=== PATIENT | female | born 1945 | race Caucasian/White ===

== ENCOUNTER 2017-02-15 18:42 | Inpatient (IN) | payer BC ==
[2017-02-15] MEDS ORDERED: HYDROmorphone INJ* 1 MG/ML CARPUJECT SYRINGE IV ONE (19:11)
[2017-02-15] MEDS ORDERED: Ondansetron INJ* 2 MG/ML VIAL IV ONE (19:11)
[2017-02-15] MEDS: NS 0.9% 1000 ML* 1,000 ML IV ONE (19:20)
[2017-02-15 20:12] LABS: Hematocrit 37 % (35-47); Hemoglobin 12.4 g/dl (12.0-16.0); Mean Corpuscular HGB Conc 34 g/dl (31-36); Mean Corpuscular Hemoglobin 29 pg (27-31); Mean Corpuscular Volume 88 fL (80-97); Mean Platelet Volume 9 um3 (7.4-10.4); Red Blood Count 4.22 10^6/ul (4.0-5.4); Red Cell Distribution Width 13 % (10.5-15); White Blood Count 2.5 10^3/ul (3.5-10.8)
[2017-02-15 20:13] LABS: Add Diff/Slide Review? Slide Review Added; Comments Flag Yes
[2017-02-15 20:29] LABS: Albumin 3.8 g/dL (3.2-5.2); BUN/Creatinine Ratio 26.6 (8-20); C Reactive Protein 1.51 mg/L (< 5.00); Calcium 9.2 mg/dL (8.6-10.3); EGFR African American 75.9 (>60); Globulin 2.5 g/dL (2-4); Potassium 3.4 mmol/L (3.5-5.0); Total Bilirubin 0.6 mg/dL (0.2-1.0); Total Protein 6.3 g/dL (6.4-8.9)
[2017-02-15] MEDS ORDERED: NS 0.9% 1000 ML* 1,000 ML IV ONE (20:36)
[2017-02-15 21:16] LABS: Eosinophils % 1 % (0-6); Immature Granulocytes 13 % (0-9); Metamyelocytes % 1 % (0-2); Neutrophil % 76 % (38-83); Reactive Lymph % 1 % (0-6)
[2017-02-15 21:17] LABS: RBC Morphology Normal (Normal)
[2017-02-15] MEDS ORDERED: Iodixanol* (CONTRAST) 320 MG/ML 100 ML SDV IV ONE ×2 (21:40→23:00)
--- NOTE | 2017-02-15 22:17 | ED ---
Meliton Hightower Julia, scribed for Kapil Velasco MD on 02/15/17 at 2000 . Abdominal Pain/Female - HPI Summary HPI Summary: This patient is a 71 year old F BIBA to [facility] with a chief complaint of abdominal pain since 15:00 today. The patient rates the pain 3/10 in severity. Symptoms aggravated and alleviated by nothing. Patient reports N/V. - History of Current Complaint Chief Complaint: EDAbdPain Stated Complaint: ABD PAIN Time Seen by Provider: 02/15/17 19:03 Hx Obtained From: Patient Onset/Duration: Gradual Onset, Lasting Hours, Still Present Timing: Constant Severity Currently: Mild Pain Intensity: 3 Pain Scale Used: 0-10 Numeric Aggravating Factor(s): Nothing Alleviating Factor(s): Nothing Associated Signs and Symptoms: Positive: Nausea, Vomiting Allergies/Adverse Reactions: Allergies Allergy/AdvReac Type Severity Reaction Status Date / Time Propoxyphene [From Darvon] Allergy Unknown Verified 02/15/17 18:48 Reaction Details PMH/Surg Hx/FS Hx/Imm Hx Endocrine/Hematology History: Reports: Hx Diabetes Cardiovascular History: Reports: Hx Hypertension Denies: Hx Pacemaker/ICD Respiratory History: Reports: Hx Asthma History: Denies: Hx Renal Disease Sensory History: Denies: Hx Hearing Aid Psychiatric History: Denies: Hx Panic Disorder - Cancer History Hx Chemotherapy: No Hx Radiation Therapy: No - Surgical History Surgery Procedure, Year, and Place: BREAST BIOPSY 35 YRS AGO, D&C AGE 23 Infectious Disease History: No Infectious Disease History: Denies: Traveled Outside the [place] in Last 30 Days - Family History Known Family History: Positive: Unknown - unable to obtain, expressive aphasia - Social History Alcohol Use: None Hx Substance Use: No Substance Use Type: Reports: None Hx Tobacco Use: No Smoking Status (MU): Never Smoked Tobacco Have You Smoked in the Last Year: No Review of Systems Negative: Fever Positive: Abdominal Pain, Vomiting, Nausea All Other Systems Reviewed And Are Negative: Yes Physical Exam - Summary Physical Exam Summary: .Appearance: The patient is well-nourished in no acute distress and in no acute pain. Skin: The skin is warm and dry and skin color reflects adequate perfusion. HEENT: The head is normocephalic and atraumatic. The pupils are equal and reactive. The conjunctivae are clear and without drainage. Nares are patent and without drainage. Mouth reveals moist mucous membranes and the throat is without erythema and exudate. The external ears are intact. The ear canals are patent and without drainage. The tympanic membranes are intact. Neck: the neck is supple with full range of motion and non-tender. There are no carotid bruits. There is no neck vein distension. Respiratory: Chest is non-tender. Lungs are clear to auscultation and breath sounds are symmetrical and equal. Cardiovascular: Heart is regular rate and rhythm. There is no murmur or rub auscultated. There is no peripheral edema and pulses are symmetrical and equal. Abdomen: The abdomen is soft and tender at the periumbilical region. There are normal bowel sounds heard in all four quadrants and there is no organomegaly palpated. Musculoskeletal: There is no back tenderness noted. Extremities are non-tender with full range of motion. There is good capillary refill. There is no peripheral edema or calf tenderness elicited. Neurological: Patient is alert and oriented to person, place and time. The patient has symmetrical motor strength in all four extremities. Cranial nerves are grossly intact. Deep tendon reflexes are symmetrical and equal in all four extremities. Psychiatric: The patient has an appropriate affect and does not exhibit any anxiety or depression. Triage Information Reviewed: Yes Vital Signs On Initial Exam: Initial Vitals Temp Pulse Resp BP Pulse Ox 100.2 F 86 16 105/32 99 02/15/17 18:46 02/15/17 18:46 02/15/17 18:46 02/15/17 18:46 02/15/17 18:46 Vital Signs Reviewed: Yes Abdomen Description: Positive: Other: - Tender at periumbilical - Stanley Coma Scale Coma Scale Total: 15 Diagnostics - Vital Signs Vital Signs Temp Pulse Resp BP Pulse Ox 02/15/17 18:56 86 134/102 95 02/15/17 18:46 100.2 F 86 16 105/32 99 - Laboratory Lab Results: Lab Results 02/15/17 02/15/17 02/15/17 Range/Units 17:45 17:45 17:45 WBC 2.5 L (3.5-10.8) 10^3/ul RBC 4.22 (4.0-5.4) 10^6/ul Hgb 12.4 (12.0-16.0) g/dl Hct 37 (35-47) % MCV 88 (80-97) fL MCH 29 (27-31) pg MCHC 34 (31-36) g/dl RDW 13 (10.5-15) % Plt Count 180 (150-450) 10^3/ul MPV 9 (7.4-10.4) um3 Neut % (Auto) 93.1 H (38-83) % Lymph % (Auto) 6.0 L (25-47) % Smyth % (Auto) 0.4 L (1-9) % Eos % (Auto) 0.2 (0-6) % Baso % (Auto) 0.3 (0-2) % Absolute Neuts (auto) 2.3 (1.5-7.7) 10^3/ul Absolute Lymphs (auto) 0.1 L (1.0-4.8) 10^3/ul Absolute Monos (auto) 0 (0-0.8) 10^3/ul Absolute Eos (auto) 0 (0-0.6) 10^3/ul Absolute Basos (auto) 0 (0-0.2) 10^3/ul Absolute Nucleated RBC 0 10^3/ul Immature Gran % 13 H (0-9) % Neutrophils % 76 (38-83) % Band Neutrophils % 12 H (0-8) % Lymphocytes % 9 L (25-47) % Reactive Lymphs % 1 (0-6) % Eosinophils % 1 (0-6) % Metamyelocytes % 1 (0-2) % Nucleated RBC % 0 Normal RBC Morphology Normal (Normal) Sodium 137 (133-145) mmol/L Potassium 3.4 L (3.5-5.0) mmol/L Chloride 103 (101-111) mmol/L Carbon Dioxide 25 (22-32) mmol/L Anion Gap 9 (2-11) mmol/L BUN 25 H (6-24) mg/dL Creatinine 0.94 (0.51-0.95) mg/dL Est GFR ( Amer) 75.9 (>60) Est GFR (Non-Af Amer) 59.0 (>60) BUN/Creatinine Ratio 26.6 H (8-20) Glucose 152 H (70-100) mg/dL Lactic Acid 3.5 H* (0.5-2.0) mmol/L Calcium 9.2 (8.6-10.3) mg/dL Total Bilirubin 0.60 (0.2-1.0) mg/dL AST 15 (13-39) U/L ALT 11 (7-52) U/L Alkaline Phosphatase 63 (34-104) U/L C-Reactive Protein 1.51 (< 5.00) mg/L Total Protein 6.3 L (6.4-8.9) g/dL Albumin 3.8 (3.2-5.2) g/dL Globulin 2.5 (2-4) g/dL Albumin/Globulin Ratio 1.5 (1-3) Lipase 25 (11.0-82.0) U/L Result Diagrams: 02/15/17 17:45 02/15/17 17:45 Lab Statement: Any lab studies that have been ordered have been reviewed, and results considered in the medical decision making process. Abdominal Pain Fem Course/Dx - Course Course Of Treatment: Ms. Borja presented with abdominal pain that started today accompanied by N/V. She was tender periumbilically and has been treated symptomatically and with fluids. She is awaiting CT. She has a history of diverticulitis. - Diagnoses Provider Diagnoses: Abdominal pain Discharge - Discharge Plan Condition: Stable Disposition: OTHER Discharge Disposition Comment: Signed out to Dr. Bond at change of shift. Referrals: Deborah De Leon MD [Primary Care Provider] - The documentation as recorded by the Meliton guerin Julia accurately reflects the service I personally performed and the decisions made by , Kapil Velasco MD.
[2017-02-16] MEDS ORDERED: metroNIDAZOLE IV 500 MG/100ML* 500 MG/100 ML BAG IVPB ONE (00:21)
[2017-02-16] MEDS ORDERED: Ciprofloxacin 400MG IVPREMIX(* 400 MG/200 ML BAG IVPB ONE (00:30)
[2017-02-16 01:16] LABS: Urine Bacteria Absent (Absent); Urine Bilirubin Negative (Negative); Urine Glucose 3+(>=500 mg/dL) (Negative); Urine Nitrite Negative (Negative)
[2017-02-16] MEDS ORDERED: Acetaminophen SUPP* 650 MG SUPP PR PRN (02:00)
[2017-02-16] MEDS ORDERED: Morphine INJ* 2 MG/ML 1 ML SYRINGE (TWO MG - NEW SYRINGE VERSION) IV PRN (02:00)
[2017-02-16] MEDS ORDERED: Ondansetron INJ* 2 MG/ML VIAL IV PRN (02:01)
[2017-02-16] MEDS ORDERED: NS 0.9% 1000 ML* 1,000 ML IV SCH (02:15)
[2017-02-16] MEDS: NS 0.9% 1000 ML* 1,000 ML IV ONE (04:05)
--- NOTE | 2017-02-16 04:32 | PN ---
Katja, Liliana Sharif, scribed for Brenda Bond MD on 02/15/17 at 2344 . Progress Note - Progress Note Date of Service: 02/15/17 Note: SIGN-OUT FROM DR. MARROQUIN UPON SHIFT CHANGE PENDING CT ABDOMEN AND PELVIS DIAGNOSTICS: CT abdomen and pelvis reveals, per radiologist, obstructive uropathy. Nonspecific sigmoid colitis. Dr. Bond has reviewed this radiology report. MDM: Consult with Dr. Delatorre (urology) at 0126. He suggests pt be admitted for further evaluation. Consult with Dr. Conklin (hospitalist) at 0131. He agrees to admit pt. This pt presented to [facility] with a chief complaint of abd pain that began earlier today. Family reports pt has been vomiting. Pt has a history of diverticulitis (at least 4 previously). Pt has a hx of stroke and diabetes. CT abdomen and pelvis reveals, per radiologist, obstructive uropathy. Nonspecific sigmoid colitis. Elevated lactic acid of 3.5. Consult with Dr. Delatorre (urologist ) at 0126. He agrees to admit pt. Pt is agreeable with plan. The documentation as recorded by the Chante guerin Emily accurately reflects the service I personally performed and the decisions made by me, Brenda Bond MD.
[2017-02-16] MEDS ORDERED: Lidocaine 1% INJ* 10 MG/ML 30 ML SDV ONE (04:58)
[2017-02-16] MEDS ORDERED: Norepinephrine 16MCG/ML IVPRE* 4,000 MCG/250 ML BAG IV ONE (05:16)
--- NOTE | 2017-02-16 05:46 | HP ---
H&P (Free Text) History and Physical: PCP: Henna De Leon MD Date/Time: 02/16/2017 0145 CC: RLQ pain HPI: Mrs Borja is a 71YO female currently unable to give a history 2nd septic encephalopathy & narcotics given in ED. She will respond incoherently to questions. This H&P is therefore obtained via ED staff & the available medical record. Mrs Borja presented via EMS for RLQ pain, bright red blood per rectum , & near syncope. Onset is documented to be ~1500, rated at 3/10, & without exacerbating or alleviating factors. There has been N/V although I see no quantification. PMedHx DM2 HTN HLD, pure hypercholesterolemia CVA diverticulitis Ambulatory Orders Nursing to reconcile. Dulaglutide (NF) [Trulicity (NF)] 0.5 ml SUBCUT WEEKLY 12/31/15 Empagliflozin [Jardiance] 10 mg PO DAILY 12/31/15 Hydrochlorothiazide [Hydrochlorothiazide-] 12.5 mg PO DAILY 12/31/15 Insulin Detemir [Levemir Flexpen] 14 units SUBCUT DAILY 12/31/15 Irbesartan 75 mg PO DAILY 12/31/15 Metformin HCl [Glucophage Xr] 750 mg PO BID 12/31/15 Metoprolol Succinate [Toprol Xl] 50 mg PO DAILY 12/31/15 glipiZIDE TAB.XL* [Glucotrol Xl*] 2.5 mg PO DAILY 12/31/15 Atorvastatin* [Lipitor 40 MG*] 40 mg PO 1700 #30 tab 01/28/16 Clopidogrel TAB* [Plavix TAB*] 75 mg PO DAILY #30 tab 01/28/16 Allergies Propoxyphene [From Darvon] Allergy (Verified 02/15/17 18:48) Unknown Reaction Details PSurgHx unobtainable SocHx: no HX tobacco, alcohol, or recreational drugs; lives with her ; 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 Father: passed in his 50s 2nd CAD/ CA. ROS: as above, otherwise reviewed and all were negative vitals: Vital Signs Temp 37.9 C 02/15/17 18:46 Pulse 85 02/16/17 04:02 Resp 21 02/16/17 04:02 BP 88/42 02/16/17 04:02 Pulse Ox 94 02/16/17 04:08 Intake & Output 02/15/17 02/15/17 02/16/17 11:59 23:59 11:59 Intake Total 1999 Balance 1999 Weight 56.699 kg Intake: IV Fluids 1999 Constitutional: NAD, normally developed, well-nourished white female HEENM: atraumatic; sclera/conjunctiva: anicteric/clear; hearing: unable to accurately assess; oropharynx: clear, mucosa tacky Neck: soft tissue: no nuchal rigidity; thyroid: normal Pulmonary: clear to auscultation bilaterally, good aeration, no accessory muscle use CV: RR/RR, normal S1S2, no carotid bruit, no jugular venous distention, 2+ B DP/ PT, no edema Abdominal: soft, non-distended, non-tender, no rebound/guarding/rigidity, normoactive bowel sounds, no hepatosplenomegaly or masses, no costovertebral angle tenderness Musculoskeletal: general: grossly intact; gait: currently too ill to ambulate Integumental: normal appearance and texture of exposed skin Psychiatric orientation: AA&O to person only affect: acutely ill appearing mood: fidgety eye contact: poor content: unreliable, incoherent memory: unable to assess responses: slowed, incomprehensible insight: poor Testing: Lab Results 02/15/17 02/15/17 02/15/17 Range/Units 17:45 17:45 17:45 WBC 2.5 L (3.5-10.8) 10^3/ul RBC 4.22 (4.0-5.4) 10^6/ul Hgb 12.4 (12.0-16.0) g/dl Hct 37 (35-47) % MCV 88 (80-97) fL MCH 29 (27-31) pg MCHC 34 (31-36) g/dl RDW 13 (10.5-15) % Plt Count 180 (150-450) 10^3/ul MPV 9 (7.4-10.4) um3 Neut % (Auto) 93.1 H (38-83) % Lymph % (Auto) 6.0 L (25-47) % Perry % (Auto) 0.4 L (1-9) % Eos % (Auto) 0.2 (0-6) % Baso % (Auto) 0.3 (0-2) % Absolute Neuts (auto) 2.3 (1.5-7.7) 10^3/ul Absolute Lymphs (auto) 0.1 L (1.0-4.8) 10^3/ul Absolute Monos (auto) 0 (0-0.8) 10^3/ul Absolute Eos (auto) 0 (0-0.6) 10^3/ul Absolute Basos (auto) 0 (0-0.2) 10^3/ul Absolute Nucleated RBC 0 10^3/ul Immature Gran % 13 H (0-9) % Neutrophils % 76 (38-83) % Band Neutrophils % 12 H (0-8) % Lymphocytes % 9 L (25-47) % Reactive Lymphs % 1 (0-6) % Eosinophils % 1 (0-6) % Metamyelocytes % 1 (0-2) % Nucleated RBC % 0 Normal RBC Morphology Normal (Normal) Sodium 137 (133-145) mmol/L Potassium 3.4 L (3.5-5.0) mmol/L Chloride 103 (101-111) mmol/L Carbon Dioxide 25 (22-32) mmol/L Anion Gap 9 (2-11) mmol/L BUN 25 H (6-24) mg/dL Creatinine 0.94 (0.51-0.95) mg/dL Est GFR ( Amer) 75.9 (>60) Est GFR (Non-Af Amer) 59.0 (>60) BUN/Creatinine Ratio 26.6 H (8-20) Glucose 152 H (70-100) mg/dL Lactic Acid 3.5 H* (0.5-2.0) mmol/L Calcium 9.2 (8.6-10.3) mg/dL Total Bilirubin 0.60 (0.2-1.0) mg/dL AST 15 (13-39) U/L ALT 11 (7-52) U/L Alkaline Phosphatase 63 (34-104) U/L C-Reactive Protein 1.51 (< 5.00) mg/L Total Protein 6.3 L (6.4-8.9) g/dL Albumin 3.8 (3.2-5.2) g/dL Globulin 2.5 (2-4) g/dL Albumin/Globulin Ratio 1.5 (1-3) Lipase 25 (11.0-82.0) U/L Urine Color Urine Appearance Urine pH (5-9) Ur Specific Ashley (1.010-1.030) Urine Protein (Negative) Urine Ketones (Negative) Urine Blood (Negative) Urine Nitrate (Negative) Urine Bilirubin (Negative) Urine Urobilinogen (Negative) Ur Leukocyte Esterase (Negative) Urine WBC (Auto) (Absent) Urine RBC (Auto) (Absent) Urine Bacteria (Absent) Urine Glucose (Negative) 02/16/17 02/16/17 Range/Units 01:00 01:00 WBC (3.5-10.8) 10^3/ul RBC (4.0-5.4) 10^6/ul Hgb (12.0-16.0) g/dl Hct (35-47) % MCV (80-97) fL MCH (27-31) pg MCHC (31-36) g/dl RDW (10.5-15) % Plt Count (150-450) 10^3/ul MPV (7.4-10.4) um3 Neut % (Auto) (38-83) % Lymph % (Auto) (25-47) % Perry % (Auto) (1-9) % Eos % (Auto) (0-6) % Baso % (Auto) (0-2) % Absolute Neuts (auto) (1.5-7.7) 10^3/ul Absolute Lymphs (auto) (1.0-4.8) 10^3/ul Absolute Monos (auto) (0-0.8) 10^3/ul Absolute Eos (auto) (0-0.6) 10^3/ul Absolute Basos (auto) (0-0.2) 10^3/ul Absolute Nucleated RBC 10^3/ul Immature Gran % (0-9) % Neutrophils % (38-83) % Band Neutrophils % (0-8) % Lymphocytes % (25-47) % Reactive Lymphs % (0-6) % Eosinophils % (0-6) % Metamyelocytes % (0-2) % Nucleated RBC % Normal RBC Morphology (Normal) Sodium (133-145) mmol/L Potassium (3.5-5.0) mmol/L Chloride (101-111) mmol/L Carbon Dioxide (22-32) mmol/L Anion Gap (2-11) mmol/L BUN (6-24) mg/dL Creatinine (0.51-0.95) mg/dL Est GFR ( Amer) (>60) Est GFR (Non-Af Amer) (>60) BUN/Creatinine Ratio (8-20) Glucose (70-100) mg/dL Lactic Acid 1.5 (0.5-2.0) mmol/L Calcium (8.6-10.3) mg/dL Total Bilirubin (0.2-1.0) mg/dL AST (13-39) U/L ALT (7-52) U/L Alkaline Phosphatase (34-104) U/L C-Reactive Protein (< 5.00) mg/L Total Protein (6.4-8.9) g/dL Albumin (3.2-5.2) g/dL Globulin (2-4) g/dL Albumin/Globulin Ratio (1-3) Lipase (11.0-82.0) U/L Urine Color Yellow Urine Appearance Clear Urine pH 5.0 (5-9) Ur Specific Ashley 1.032 H (1.010-1.030) Urine Protein Negative (Negative) Urine Ketones Trace H (Negative) Urine Blood 1+ H (Negative) Urine Nitrate Negative (Negative) Urine Bilirubin Negative (Negative) Urine Urobilinogen Negative (Negative) Ur Leukocyte Esterase Trace H (Negative) Urine WBC (Auto) 1+(6-10/hpf) H (Absent) Urine RBC (Auto) Trace(0-2/hpf) (Absent) Urine Bacteria Absent (Absent) Urine Glucose 3+(>=500 mg/dl) H (Negative) CT abd/pel W, personally reviewed: IMPRESSION: Obstructive [left] uropathy. Non- specific sigmoid colitis. Impression: 71F HX DM2, CVA, HTN presents in septic shock (hypotension after 30mg/kg IVF resuscitation, leukopenia, AMS, HR>90) 2nd combination of non- specific signmoid colitis & obstructive uropathy DIAGNOSIS & PLAN Primary septic shock with encephalopathy : IV ABX : IVFs : blood & urine CXs : central line for pressor support : ICU monitoring : supportive care 3mm obstructing ureterolith at the UVJ : S Juan Ramon, MD urology consulted by ED, will evaluate in AM : UA not indicative of infection : urine CX non-specific sigmoid colitis : IVFs : IV ciprofloxacin & metronidazole : stool for occult blood Secondary DM2 : A1c 7.29 Nov 2016 : Q4H glucometry : basal/correctional insulin HTN : hold anti-hypertensives in setting of septic shock HLD, pure hypercholesterolemia : continue statin once able to take PO HX CVA : no obvious acute issues Admission Rational: inpatient for septic shock, obstructive uropathy, & non- specific sigmoid colitis requiring ICU management, IVFs, & IV ABX DVTp: SCDs, heparin SQ Code Status: full HCP: Critical Care Time: 65minutes with >50% spent at the bedside face to face evaluating and obtaining HX
[2017-02-16] MEDS ORDERED: Norepinephrine 16MCG/ML IVPRE* 4,000 MCG/250 ML BAG IV SCH (06:00)
[2017-02-16] MEDS: Insulin LISPRO* 1 UNITS UNIT SUBCUT SCH ×5 (06:03→22:38)
[2017-02-16 06:26] LABS: Hematocrit 32 % (35-47); Hemoglobin 10.7 g/dl (12.0-16.0); Mean Corpuscular HGB Conc 34 g/dl (31-36); Mean Corpuscular Hemoglobin 29 pg (27-31); Mean Corpuscular Volume 87 fL (80-97); Mean Platelet Volume 10 um3 (7.4-10.4); Red Blood Count 3.67 10^6/ul (4.0-5.4); Red Cell Distribution Width 13 % (10.5-15); White Blood Count 17.2 10^3/ul (3.5-10.8)
[2017-02-16 06:41] LABS: Calcium 8.1 mg/dL (8.6-10.3); EGFR African American 70.7 (>60); Potassium 3.1 mmol/L (3.5-5.0)
[2017-02-16] MEDS ORDERED: cefTRIAXone VIAL(*) 1,000 MG in NS 0.9% 50 ML* 50 ML IVPB SCH (07:00)
[2017-02-16 07:15] LABS: Add Diff/Slide Review? Slide Review Added; Comments Flag Yes
[2017-02-16] MEDS ORDERED: NS 0.9% IVPB ONE (07:30)
[2017-02-16] MEDS ORDERED: GENTAMICIN ADULT IVPB ONE (07:30)
--- NOTE | 2017-02-16 08:01 | RAD ---
INDICATION: Diffuse abdominal pain. COMPARISON: There are no prior studies available for comparison. TECHNIQUE: A CT scan of the abdomen and pelvis was performed with intravenous and oral contrast following intravenous injection of 71 ml of Visipaque 320 nonionic contrast. Contiguous axial sections were obtained from the lung bases through the symphysis pubis. Images were reconstructed in the coronal and sagittal planes. FINDINGS: There is mild dependent bilateral lower lobe subsegmental atelectasis. No pleural effusion is present. The liver and spleen are normal in size without significant focal abnormality. The gallbladder appears distended. No calcified gallstones or gallbladder wall thickening is seen. The pancreas appears to be within normal limits. The adrenal glands appear to be within normal limits. The left kidney is enlarged with perinephric fluid and stranding. There is dilatation of the left renal calyces pelvis and ureter to the level of the ureterovesical junction. At that point there is a 4 mm calculus which is causing moderate to severe hydronephrosis. There is also a 2 mm nonobstructing calculus in the lower pole of the left kidney. There are small bilateral renal cysts present. The aorta is normal in caliber with severe calcific plaque present. No significant enlarged retroperitoneal lymph nodes are seen. There is a small hiatal hernia present. The stomach, small and large bowel appear nondistended. The appendix is within normal limits. There is mild to moderate descending and sigmoid diverticulosis. There is stranding adjacent to the descending colon which is likely secondary to the adjacent perinephric stranding from the obstructed left kidney. No free intraperitoneal air or fluid is seen. The bones appear osteopenic. No fracture is seen. IMPRESSION: THERE IS A 4 MM CALCULUS AT THE LEFT URETEROVESICAL JUNCTION CAUSING MODERATE TO SEVERE HYDRONEPHROSIS. THERE IS AN ADDITIONAL SMALL NONOBSTRUCTING LEFT RENAL CALCULUS.
--- NOTE | 2017-02-16 08:06 | PN ---
Progress Note - Progress Note Date of Service: 02/16/17 Note: Nursing called reporting 3/4 blood CXs already positive for G- bacteria. Prateek Delatorre MD urology apprised, advised consulting Addie Dunn MD interventional radiology for nephrostomy who agreed & will shortly be en route. Add 1g ceftriaxone IV & 2mg/kg gentimicin x1 dose ( ICU weight 62kg). called & informed of new findings, consented to nephrostomy after risks/benefits explained & questions sought/answered to his satisfaction. Micha Lyles MD critical care apprised & will evaluate in AM.
[2017-02-16 08:10] LABS: Immature Granulocytes 16 % (0-9); Metamyelocytes % 5 % (0-2); Neutrophil % 76 % (38-83); Reactive Lymph % 2 % (0-6)
[2017-02-16 08:11] LABS: RBC Morphology Normal (Normal); Toxic Granulation 1+
[2017-02-16] MEDS: Pantoprazole IV* 40 MG IV SCH (08:13)
[2017-02-16] MEDS ORDERED: metroNIDAZOLE IV 500 MG/100ML* 500 MG/100 ML BAG IVPB SCH (10:00)
[2017-02-16] MEDS ORDERED: NS 0.9% 250 ML* 246 ML with Norepinephrine VIAL* 4 MG IV SCH ×2 (11:00)
--- NOTE | 2017-02-16 11:02 | CONSULT ---
Consult Consult: Consultation Note Critical Care Requesting Physician: Dr Conklin Reason for consult: septic shock Limitations in history/physical: none Date of consult: 02/16/2017 HPI: 71y F pmhx of DM, HTN, asthma, h/o CVA with right residual deficit; presents to [facility] ER for abd pain for 1 day, umbilical or right sided, associated with nausea and vomiting. She states no diarrhea. She was making urine, no dysuria but +hematuria+ yesterday. No syncope/cp/sob. No confusion. No falls. No cough/sputum. No fever/chills. In ER, she was found to have a tmax 100.5, became hypotensive. Started on sepsis protocol, IVF and IV abx. CT of the abd/ pelvis done demonstrating left sided hydronephrosis secondary to obstructive uropathy from an obstructing ureterovesical junction. Urology and IR was called for placement of percutaneous nephrostomy tube for decompression. Currently patient is in bed, denies abd pain now, no n/v. feels okay. Denies cp/ sob. Had some blurry vision last night but none at this time. No weakness/ numbness. ROS: negative except for pertinent positives mentioned above. 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; lives with Allergies: propoxyphene Home Medications: Dulaglutide (NF) [Trulicity (NF)] 0.5 ml SUBCUT WEEKLY 12/31/15 [History Confirmed 01/02/16] Empagliflozin [Jardiance] 10 mg PO DAILY 12/31/15 [History Confirmed 01/02/16] Hydrochlorothiazide [Hydrochlorothiazide-] 12.5 mg PO DAILY 12/31/15 [History Confirmed 01/02/16] Insulin Detemir [Levemir Flexpen] 14 units SUBCUT DAILY 12/31/15 [History Confirmed 01/02/16] Irbesartan 75 mg PO DAILY 12/31/15 [History Confirmed 01/02/16] Metformin HCl [Glucophage Xr] 750 mg PO BID 12/31/15 [History Confirmed 01/02/16 ] Metoprolol Succinate [Toprol Xl] 50 mg PO DAILY 12/31/15 [History Confirmed 06/13] glipiZIDE TAB.XL* [Glucotrol Xl*] 2.5 mg PO DAILY 12/31/15 [History Confirmed ] Atorvastatin* [Lipitor 40 MG*] 40 mg PO 1700 #30 tab 01/28/16 [Rx] Clopidogrel TAB* [Plavix TAB*] 75 mg PO DAILY #30 tab 01/28/16 [Rx] Tele: NSR Vitals: Vital Signs Temp 99.8 F 02/16/17 08:34 Pulse 75 02/16/17 10:30 Resp 10 02/16/17 10:30 BP 99/51 02/16/17 10:30 Pulse Ox 98 02/16/17 10:30 Intake & Output 02/15/17 02/16/17 02/16/17 18:59 06:59 18:59 Intake Total 4300 Output Total 500 Balance 3800 Weight 125 lb 125 lb 139 lb 12.369 oz Intake: IV Fluids 4300 NS (0.9%) 2000 Output: Greene 500 Other: Estimated Void Large O2/Vent: NC 2L Infusions: levophed 10, ns 100cc/hr Current Medications: Acetaminophen (Tylenol Supp*) 650 mg PA Q6H PRN PRN Reason: FEVER/PAIN Aspirin (Aspirin Ec Low Dose*) 81 mg PO DAILY [facility] Atorvastatin Calcium (Lipitor*) 40 mg PO 1700 [facility] Clopidogrel Bisulfate (Plavix Tab*) 75 mg PO DAILY [facility] Heparin Sodium (Porcine) (Heparin Vial(*)) 5,000 units SUBCUT Q8HR [facility] Ciprofloxacin 400 mg/ Dextrose 200 mls @ 200 mls/hr IVPB Q12H [facility] Metronidazole/Sodium Chloride (Flagyl 500 Mg Ivpb*) 500 mg in 100 mls @ 100 mls /hr IVPB Q8H [facility] Last Admin: 02/16/17 10:56 Dose: 100 mls/hr Sodium Chloride (Ns 0.9% 1000 Ml*) 1,000 mls @ 125 mls/hr IV PER RATE [facility] Last Admin: 02/16/17 05:53 Dose: 125 mls/hr Ceftriaxone Sodium 1,000 mg/ (Sodium Chloride) 50 mls @ 200 mls/hr IVPB Q24H [facility] Last Admin: 02/16/17 08:08 Dose: 200 mls/hr Norepinephrine Bitartrate 4 mg (/ Sodium Chloride) 250 mls @ 18.75 mls/hr IV Q12H [facility]; 5 MCG/MIN PRN Reason: Protocol Insulin Glargine (Lantus(*)) 11 units 0.2 units/kg (11 units) SUBCUT 2100 [facility] Stop: 02/17/17 20:00 Insulin Human Lispro (Humalog*) 0 units SUBCUT Q4H [facility] PRN Reason: Protocol Last Admin: 02/16/17 10:53 Dose: 1 unit Morphine Sulfate (Morphine Inj (Syringe)*) 2 mg IV Q4H PRN PRN Reason: PAIN - MILD Ondansetron HCl (Zofran Inj*) 4 mg IV Q6H PRN PRN Reason: NAUSEA Pantoprazole Sodium (Protonix Iv*) 40 mg IV DAILY [facility] Last Admin: 02/16/17 08:13 Dose: 40 mg Physical Exam: General: awake, alert, no distress, no diaphoresis Head: normocephalic, atraumatic HEENT: no pallor, no icterus, moist mucous membranes Neck: soft, supple, no jvd, no stridor CVS: normal rate, normal rhythm, no murmur Resp: bilateral air entry, no rhales, no wheeze, no rhonchi, no acc muscle use Abdomen: soft, minimal tenderness on left side with deep palpation, nondistended , bowel sounds present Ext: pulses+, warm, no edema Skin: intact, no breakdown, no dryness Neuro: awake, alert, orientedx3, previous right upper ext 3/5 and right LE 4/5 strength. Labs: Laboratory Results - last 24 hr 02/15/17 02/15/17 02/15/17 17:45 17:45 17:45 WBC 2.5 L RBC 4.22 Hgb 12.4 Hct 37 MCV 88 MCH 29 MCHC 34 RDW 13 Plt Count 180 MPV 9 Neut % (Auto) 93.1 H Lymph % (Auto) 6.0 L [place] % (Auto) 0.4 L Eos % (Auto) 0.2 Baso % (Auto) 0.3 Absolute Neuts (auto) 2.3 Absolute Lymphs (auto) 0.1 L Absolute Monos (auto) 0 Absolute Eos (auto) 0 Absolute Basos (auto) 0 Absolute Nucleated RBC 0 Immature Gran % 13 H Neutrophils % 76 Band Neutrophils % 12 H Lymphocytes % 9 L Reactive Lymphs % 1 Monocytes % Eosinophils % 1 Metamyelocytes % 1 Nucleated RBC % 0 Toxic Granulation Normal RBC Morphology Normal Sodium 137 Potassium 3.4 L Chloride 103 Carbon Dioxide 25 Anion Gap 9 BUN 25 H Creatinine 0.94 Est GFR ( Amer) 75.9 Est GFR (Non-Af Amer) 59.0 BUN/Creatinine Ratio 26.6 H Glucose 152 H POC Glucose (mg/dL) Lactic Acid 3.5 H* Calcium 9.2 Total Bilirubin 0.60 AST 15 ALT 11 Alkaline Phosphatase 63 C-Reactive Protein 1.51 Total Protein 6.3 L Albumin 3.8 Globulin 2.5 Albumin/Globulin Ratio 1.5 Lipase 25 Urine Color Urine Appearance Urine pH Ur Specific [place] Urine Protein Urine Ketones Urine Blood Urine Nitrate Urine Bilirubin Urine Urobilinogen Ur Leukocyte Esterase Urine WBC (Auto) Urine RBC (Auto) Urine Bacteria Urine Glucose 02/16/17 02/16/17 02/16/17 01:00 01:00 05:54 WBC RBC Hgb Hct MCV MCH MCHC RDW Plt Count MPV Neut % (Auto) Lymph % (Auto) [place] % (Auto) Eos % (Auto) Baso % (Auto) Absolute Neuts (auto) Absolute Lymphs (auto) Absolute Monos (auto) Absolute Eos (auto) Absolute Basos (auto) Absolute Nucleated RBC Immature Gran % Neutrophils % Band Neutrophils % Lymphocytes % Reactive Lymphs % Monocytes % Eosinophils % Metamyelocytes % Nucleated RBC % Toxic Granulation Normal RBC Morphology Sodium 138 Potassium 3.1 L Chloride 107 Carbon Dioxide 23 Anion Gap 8 BUN 24 Creatinine 1.00 H Est GFR ( Amer) 70.7 Est GFR (Non-Af Amer) 55.0 BUN/Creatinine Ratio 24.0 H Glucose 175 H POC Glucose (mg/dL) Lactic Acid 1.5 Calcium 8.1 L Total Bilirubin AST ALT Alkaline Phosphatase C-Reactive Protein Total Protein Albumin Globulin Albumin/Globulin Ratio Lipase Urine Color Yellow Urine Appearance Clear Urine pH 5.0 Ur Specific [place] 1.032 H Urine Protein Negative Urine Ketones Trace H Urine Blood 1+ H Urine Nitrate Negative Urine Bilirubin Negative Urine Urobilinogen Negative Ur Leukocyte Esterase Trace H Urine WBC (Auto) 1+(6-10/hpf) H Urine RBC (Auto) Trace(0-2/hpf) Urine Bacteria Absent Urine Glucose 3+(>=500 mg/dl) H 02/16/17 02/16/17 02/16/17 05:54 05:58 08:05 WBC 17.2 H RBC 3.67 L Hgb 10.7 L Hct 32 L MCV 87 MCH 29 MCHC 34 RDW 13 Plt Count 170 MPV 10 Neut % (Auto) 89.3 H Lymph % (Auto) 1.9 L [place] % (Auto) 8.6 Eos % (Auto) 0 Baso % (Auto) 0.2 Absolute Neuts (auto) 15.3 H Absolute Lymphs (auto) 0.3 L Absolute Monos (auto) 1.5 H Absolute Eos (auto) 0 Absolute Basos (auto) 0 Absolute Nucleated RBC 0 Immature Gran % 16 H Neutrophils % 76 Band Neutrophils % 11 H Lymphocytes % 1 L Reactive Lymphs % 2 Monocytes % 5 Eosinophils % Metamyelocytes % 5 H Nucleated RBC % 0 Toxic Granulation 1+ Normal RBC Morphology Normal Sodium Potassium Chloride Carbon Dioxide Anion Gap BUN Creatinine Est GFR ( Amer) Est GFR (Non-Af Amer) BUN/Creatinine Ratio Glucose POC Glucose (mg/dL) 191 H 180 H Lactic Acid Calcium Total Bilirubin AST ALT Alkaline Phosphatase C-Reactive Protein Total Protein Albumin Globulin Albumin/Globulin Ratio Lipase Urine Color Urine Appearance Urine pH Ur Specific [place] Urine Protein Urine Ketones Urine Blood Urine Nitrate Urine Bilirubin Urine Urobilinogen Ur Leukocyte Esterase Urine WBC (Auto) Urine RBC (Auto) Urine Bacteria Urine Glucose Imaging: Reviewed CT abd/pelvis 02/16 - left hydro, left obstructing stone at ureteropelvic junction Assessment: 71y F pmhx of DM, HTN, asthma, h/o CVA with right residual deficit; presents to [facility] ER for abd pain for 1 day, umbilical or right sided, associated with nausea and vomiting. Low grade temps, hypotensive in ER. CT abd/pelvis with left side hydro and obstructive uropathy 2/2 to stones. Admitted for septic shock. -Septic Shock -Gram negative bacteremia -Left hydronephrosis 2/2 to ureterovesical stone and obstructive uropathy -Hyperlactatemia, improved -hypokalemia Plan: Neuro- stable, baseline right sided weakness. Restart Plavix/statin/aspirin after procedure done. Delirium prec. Fall prec. CVS- septic shock, on levophed. Cont NS 100cc/hour. LA normalized now. Making urine. IV abx for gram neg coverage. Right fem central line. Maintain MAP>65. Resp- no resp distress, on NC/RA. ID- tmax 100.5, wbc 17 now. Gram neg bacilli in blood cx. Left sided hydro and obstruction, likely cause as urosepsis. For nephrostomy today. Send urine culture after. Change IV abx to zosyn, d/c Cipro/ceftriaxone/flagyl. GI- NPO for procedure today. GI proph. Renal- Cr normal. Making urine. Repleting K IV and PO. Replete Mg. Noted CT findings of obstructive uropathy on left. Perc Nephrostomy today for decompression, by IR, discussed. Urology consult. IV abx. Greene in place. Heme- hg stable, some drop after IVF recucitation. Monitor. Plt okay. Hold asa/ Plavix for now till after procedure. Endo- insulin coverage, fingersticks achs Musculsk- bedrest now, pressure ulcer proph. Wounds- none Nutrition- NPO for now DVT prophylaxis: heparin sq GI prophylaxis: protonix po Central Line: right fem 02/16 Arterial Line: - Greene Cathetor: yes Disposition: admitted to ICU for septic shock Code Status: full code Total Critical Care time is 45 minutes, excluding procedures/teaching Dar Lyles MD Delivery Architect (Electronically Signed)
--- NOTE | 2017-02-16 11:24 | RAD ---
INDICATION: Bacteremia in the presence of obstructive left nephropathy. COMPARISON: CT abdomen pelvis February 15, 2017 TECHNIQUE: Real-time ultrasound examination of the left kidney only including grayscale and Doppler color flow analysis. FINDINGS: The left kidney measures 12.9 x 5.7 x 4.6 cm. There is only mild dilatation of the collecting system. There is an inferior pole cyst measuring 2.1 cm in greatest dimension. IMPRESSION: Very mild left-sided hydronephrosis.
[2017-02-16] MEDS ORDERED: fentaNYL* 50 MCG/ML 2 ML VIAL (100 MCG VIAL) ONE ×2 (11:27→13:17)
[2017-02-16] MEDS ORDERED: Midazolam* 1 MG/ML 10 ML VIAL (10 MG) ONE (11:28)
[2017-02-16] MEDS ORDERED: Ciprofloxacin IV(*) 400 MG in D5W 250 ML BAG* 160 ML IVPB SCH (14:00)
--- NOTE | 2017-02-16 15:24 | RAD ---
CPT II Codes: 6045F PERCUTANEOUS NEPHROSTOMY TUBE PLACEMENT WITH SONOGRAPHIC AND FLUOROSCOPIC GUIDANCE. INDICATION: Left-sided obstructive uropathy with bacteremia COMPARISON: CT abdomen pelvis February 15, 2017 and left renal ultrasound February 16, 2017 FLUOROSCOPY TIME: 5 minutes and 27 seconds ANESTHESIA AND OTHER PERIOPERATIVE MEDICATIONS: 1% lidocaine locally. Sedation and pain control provided by intravenous Fentanyl. Continuous cardiopulmonary monitoring was provided by Dr. Dunn and IR nursing staff. PROCEDURE NOTE AND IMAGING FINDINGS: The benefits and risks of the procedure explained to the patient. The patient consented to the procedure. The patient was positioned on the fluoroscopy table in the left posterior oblique position. Preliminary sonographic exam demonstrates a mildly hydronephrotic left kidney. A lower pole calyx was identified for percutaneous access. Color flow analysis does not show any pulsating arteries in the intended percutaneous percutaneous nephrostomy catheter tract or in the immediate vicinity of the planned drain placement. A formal time out was preformed with the technologist and nursing staff. The intended percutaneous nephrostomy catheter site was prepped and draped in the usual sterile fashion. The patient was given intravenous sedation and local anesthesia with 1% lidocaine. Using ultrasound guidance lower pole calyx was accessed percutaneously with a 21-gauge needle. An ultrasound image was saved confirming correct positioning of the needle tip in the calyx. Under fluoroscopic control a microwire was advanced into the renal collecting system. The needle was removed and the sheath-stiffener system was inserted into the kidney over the wire under fluoroscopic control. The stiffener and microwire were removed and urine was observed draining from the access sheath. A urine sample was gently aspirated, capped in a sterile syringe and sent to the laboratory for analysis. After gently draining as much urine from the collecting system as could easily be expressed dilute contrast was injected to perform a nephrostogram which depicted very mild hydronephrosis. Under fluoroscopic control a 0.035 inch wire was advanced into the collecting system, the sheath was removed over the wire and the tract dilated up, culminating in advancement of an 8 Hungarian pigtail drainage catheter into the collecting system. The pigtail loop was correctly positioned in the collecting system, a final nephrostogram confirmed appropriate position, the loop was secured and the catheter was connected to a drainage bag. The catheter was secured to the skin and the site was dressed with sterile gauze. The patient tolerated the procedure well without incident. IMPRESSION: Uncomplicated placement of 8 Hungarian percutaneous nephrostomy catheter into the left lower pole renal collecting system with ultrasound and fluoroscopic guidance as described in the report. PLAN: 1. Percutaneous nephrostomy catheter to gravity. 2. Monitor drain output. 3. Follow-up laboratory samples. 4. Routine recommended exchange of percutaneous nephrostomy catheters is every 6-12 weeks depending on indication and specific circumstances of the patient.
[2017-02-16] MEDS: Piperacillin/Tazobac ADVAN(*) 3.375 GM in NS 0.9% 100 ML* 100 ML IVPB SCH ×2 (15:36→20:26)
[2017-02-16] MEDS: NS 0.9% 1000 ML* 1,000 ML IV SCH (15:37)
[2017-02-16] MEDS: Atorvastatin* 40 MG TAB PO SCH (18:35)
[2017-02-16] MEDS: Norepinephrine VIAL* 8 MG in NS 0.9% 500 ML* 492 ML IV SCH ×2 (20:30→22:30)
[2017-02-16] MEDS ORDERED: Insulin GLARGINE(*) 1 UNITS UNIT SUBCUT SCH (21:00)
--- NOTE | 2017-02-16 21:19 | CONS ---
UROLOGY CONSULTATION: DATE OF CONSULT: 02/16/17 REQUESTING PHYSICIANS: Dr. Hunter Conklin and Dr. Zarate, emergency department. DIAGNOSES: 1. Calculus, left distal ureter. 2. Sepsis. HISTORY OF PRESENT ILLNESS: Ewelina Borja is a 71-year-old lady, who had presented to the emergency room with various different complaints including abdominal lower quadrant pain, bright red blood per rectum, and near syncope. In reviewing the emergency room records, it looked like she had been evaluated in the emergency room for a while. At some point, a CT scan was obtained, which showed a 3 to 4 mm calculus at the left ureterovesical junction and left hydronephrosis. From discussion with the emergency department physician, it appeared that she had been relatively stable up until early in the morning on 02/16 at which point she became hypotensive and was then transferred to the intensive care unit. PAST MEDICAL HISTORY: Significant for: 1. Hypertension. 2. Type 2 diabetes mellitus. 3. Hypercholesterolemia. 4. History of cerebrovascular accident. 5. History of diverticulitis. MEDICATIONS ON ADMISSION: 1. Hydrochlorothiazide 12.5 mg daily. 2. Insulin detemir 14 units subcutaneous daily. 3. Jardiance 10 mg daily. 4. Metformin 750 mg b.i.d. 5. Irbesartan 75 mg daily. 6. Trulicity 0.5 mL subcutaneous weekly. 7. Metoprolol 50 mg daily. 8. Lipitor 40 mg daily. 9. Glipizide XL 2.5 mg daily. 10. Plavix 75 mg daily. ALLERGIES AND INTOLERANCES: PROPOXYPHENE (from [facility]). PHYSICAL EXAMINATION: Revealed a pleasant, elderly lady, who is currently in bed in the ICU. She is awake and responsive to questions. Blood pressure is 90 /44, pulse 88 per minute, temperature 37.9, oxygen saturation 94% on room air. Cardiovascular Exam: Regular rate and rhythm. S1, S2. Lungs are clear bilaterally. Abdomen is soft with no rebound or guarding. There is very mild left costovertebral angle tenderness. DIAGNOSTIC STUDIES/LAB DATA: Review of her labs reveals a white count of 3.5, hemoglobin and hematocrit are normal at 12.4 and 37 with a platelet count of 180 ,000. BUN and creatinine are 25 and 0.94 respectively. Lactic acid is elevated at 3.5. Urinalysis reveals a pH of 5.0, 1+ blood, trace leukocyte esterase, negative nitrite, 3+ glucose. I reviewed the CT scan, which revealed 3 to 4 mm calculus, which appears to be right at the ureterovesical junction projecting into the bladder. The complicating factor is her blood cultures, which according to the report are preliminary positive for gram negative bacteria, which makes this likely to be urosepsis. While it is unusual that the urinalysis did not show bacteria and is not strongly suspicious for urinary tract infection, yet she appears to have become bacteremic and I discussed this with Dr. Conklin. In the phase of bacteremia and sepsis with an obstructing stone in the distal ureter, the recommendation would be ideally for treatment with left percutaneous nephrostomy tube in an effect to decompress the system and avoid further infecting bacteremia by avoiding any urological procedures at this point. Once she has had the left nephrostomy tube successfully placed and the infection has been successfully treated, then I could bring her back as an outpatient for left ureteroscopy and stone removal if needed. I had a detailed discussion with the patient and with Dr. Conklin regarding this plan and he has contacted Dr. Dunn to place the left nephrostomy tube. I will be available in case there is any difficulty with placing the nephrostomy tube to take her to the operating room for a left stent insertion and will be available if any further urologic input is needed at the present time. [id number]/CPS #: [id number] JOSEPHINE
[2017-02-17] MEDS: Insulin LISPRO* 1 UNITS UNIT SUBCUT SCH ×6 (02:00→23:02)
[2017-02-17] MEDS: Piperacillin/Tazobac ADVAN(*) 3.375 GM in NS 0.9% 100 ML* 100 ML IVPB SCH ×3 (03:33→19:42)
[2017-02-17] MEDS: Heparin VIAL(*) 5000 UNITS/ML VIAL (FIVE THOUSAND) SUBCUT SCH ×3 (06:50→23:03)
[2017-02-17] MEDS: Pantoprazole IV* 40 MG IV SCH (09:31)
[2017-02-17] MEDS: Acetaminophen TAB* 325 MG PO PRN ×2 (10:37→17:31)
--- NOTE | 2017-02-17 11:19 | PN ---
Progress Note - Progress Note Date of Service: 02/17/17 Note: Consultation Note Critical Care 24 hour events: -s/p left nephrostomy tube+ -serous drainage now -on levophed and weaned off later this morning now -no distres; mild abd discomfort now -no fever/n/v. no diarrhea Tele: NSR Vitals: Vital Signs Temp 99 F 02/17/17 07:55 Pulse 87 02/17/17 10:40 Resp 19 02/17/17 10:40 BP 102/54 02/17/17 10:40 Pulse Ox 97 02/17/17 10:40 Intake & Output 02/16/17 02/17/17 02/17/17 18:59 06:59 18:59 Intake Total 1308 1847 520 Output Total 700 1600 Balance 608 247 520 Weight 139 lb 12.369 oz 144 lb 6.444 oz Intake: IV Fluids 385 ABX - ZOSYN 105 NS (0.9%) 280 IVPB 988 156 ABX - ZOSYN 156 NS (0.9%) 988 Medicated IV 306 CC - Norepinephrine/ 306 Levophed Oral 320 1000 520 Output: Greene 700 900 Nephrostomy #1 700 O2/Vent: NC Infusions: levophed 2, ns 100cc/hr Current Medications: Acetaminophen (Tylenol Tab*) 650 mg PO Q6H PRN PRN Reason: PAIN/FEVER Last Admin: 02/17/17 10:37 Dose: 325 mg Aspirin (Aspirin Ec Low Dose*) 81 mg PO DAILY [facility] Atorvastatin Calcium (Lipitor*) 40 mg PO 1700 [facility] Last Admin: 02/16/17 18:35 Dose: 40 mg Clopidogrel Bisulfate (Plavix Tab*) 75 mg PO DAILY [facility] Heparin Sodium (Porcine) (Heparin Vial(*)) 5,000 units SUBCUT Q8HR [facility] Last Admin: 02/17/17 06:50 Dose: 5,000 units Piperacillin Sod/Tazobactam (Sod 3.375 gm/ Sodium Chloride) 100 mls @ 25 mls/ hr IVPB Q8H [facility] Last Admin: 02/17/17 03:33 Dose: 25 mls/hr Sodium Chloride (Ns 0.9% 1000 Ml*) 1,000 mls @ 75 mls/hr IV PER RATE [facility] Last Admin: 02/16/17 15:37 Dose: 75 mls/hr Norepinephrine Bitartrate 8 mg (/ Sodium Chloride) 500 mls @ 22.5 mls/hr IV Q22H [facility]; 6 MCG/MIN PRN Reason: Protocol Last Admin: 02/16/17 22:30 Dose: 22.5 mls/hr Insulin Glargine (Lantus(*)) 11 units 0.2 units/kg (11 units) SUBCUT 2100 [facility] Stop: 02/17/17 20:00 Last Admin: 02/16/17 21:34 Dose: 11 units Insulin Human Lispro (Humalog*) 0 units SUBCUT Q4H [facility] PRN Reason: Protocol Last Admin: 02/17/17 10:36 Dose: 1 unit Morphine Sulfate (Morphine Inj (Syringe)*) 2 mg IV Q4H PRN PRN Reason: PAIN - MILD Ondansetron HCl (Zofran Inj*) 4 mg IV Q6H PRN PRN Reason: NAUSEA Pantoprazole Sodium (Protonix Iv*) 40 mg IV DAILY [facility] Last Admin: 02/17/17 09:31 Dose: 40 mg Physical Exam: General: awake, alert, no distress, no diaphoresis Head: normocephalic, atraumatic HEENT: no pallor, no icterus, moist mucous membranes Neck: soft, supple, no jvd, no stridor CVS: normal rate, normal rhythm, no murmur Resp: bilateral air entry, no rhales, no wheeze, no rhonchi, no acc muscle use Abdomen: soft, nontender; left posterior nephrostomy drain+, serous drainage noted, nondistended, bs+ Ext: pulses+, warm, no edema Skin: intact, no breakdown, no dryness Neuro: awake, alert, orientedx3, previous right upper ext 3/5 and right LE 4/5 strength. Labs: Laboratory Results - last 24 hr 02/16/17 02/16/17 02/16/17 11:00 15:48 18:17 INR (Anticoag Therapy) 1.10 H APTT 32.5 POC Glucose (mg/dL) 114 H 208 H 02/16/17 02/17/17 02/17/17 22:27 01:56 06:22 INR (Anticoag Therapy) APTT POC Glucose (mg/dL) 176 H 145 H 140 H 02/17/17 10:31 INR (Anticoag Therapy) APTT POC Glucose (mg/dL) 176 H Imaging: Reviewed CT abd/pelvis 02/16 - left hydro, left obstructing stone at ureteropelvic junction Assessment: 71y F pmhx of DM, HTN, asthma, h/o CVA with right residual deficit; presents to [facility] ER for abd pain for 1 day, umbilical or right sided, associated with nausea and vomiting. Low grade temps, hypotensive in ER. CT abd/pelvis with left side hydro and obstructive uropathy 2/2 to stones. Admitted for septic shock. -Septic Shock -E.coli bacteremia, suspect urosepsis -Left hydronephrosis 2/2 to ureterovesical stone and obstructive uropathy; s/p left nephrostomy 02/16 -Hyperlactatemia, improved -hypokalemia Plan: Neuro- stable, baseline right sided weakness. Plavix/statin/aspirin. Delirium prec. Fall prec. CVS- septic shock, tapered off levophed this morning. on NS 100cc/hour. good urine output, left nephrostomy with urine drainging. IV abx for bacteremia+ Resp- no resp distress, on NC/RA. ID- tmax 100.2, cbc pending today. E.coli bacteremia+; cont zosyn (day#2). Left sided hydro and obstruction, s/p left nephrostomy, urine+ now. Urine culture pending. GI- cardiac diet. GI proph. Renal- Making urine, left nephrostomy drainaing urine. more clear now. Cont NS infusion, dec rate. off pressors this morning. WIll need eventual cystoscopy by urology in coming weeks. Greene in place. Heme- no sig bleeding noted. restart plavix/asa for prior cva. dvt proph with heparin/scds. Endo- insulin coverage, fingersticks achs Musculsk- bedrest now, pressure ulcer proph. oob to chair if tolerated today. Wounds- none Nutrition- cardiac diet DVT prophylaxis: heparin sq GI prophylaxis: protonix po Central Line: right fem 02/16 Arterial Line: - Greene Cathetor: yes Disposition: ICU for septic shock and e.coli bacteremia, left sided obstructive uropathy Code Status: full code Total Critical Care time is 40 minutes, excluding procedures/teaching Dar Lyles MD Receiving Coordinator (Electronically Signed)
[2017-02-17 12:43] LABS: Hematocrit 30 % (35-47); Hemoglobin 10.1 g/dl (12.0-16.0); Mean Corpuscular HGB Conc 34 g/dl (31-36); Mean Corpuscular Hemoglobin 30 pg (27-31); Mean Corpuscular Volume 88 fL (80-97); Mean Platelet Volume 10 um3 (7.4-10.4); Red Cell Distribution Width 14 % (10.5-15); White Blood Count 13.3 10^3/ul (3.5-10.8)
[2017-02-17 13:16] LABS: BUN/Creatinine Ratio 34.5 (8-20); Calcium 8.2 mg/dL (8.6-10.3); EGFR African American 140.9 (>60); EGFR Non-African American 109.6 (>60); Potassium 3.6 mmol/L (3.5-5.0)
[2017-02-17] MEDS: Norepinephrine VIAL* 8 MG in NS 0.9% 500 ML* 492 ML IV SCH ×2 (14:59→16:49)
[2017-02-17] MEDS: Atorvastatin* 40 MG TAB PO SCH (16:49)
[2017-02-17] MEDS ORDERED: Norepinephrine VIAL* 8 MG in NS 0.9% 500 ML* 492 ML IV SCH (17:00)
[2017-02-18] MEDS: Acetaminophen TAB* 325 MG PO PRN ×3 (01:26→21:39)
[2017-02-18] MEDS: NS 0.9% 1000 ML* 1,000 ML IV SCH (01:54)
[2017-02-18] MEDS: Insulin LISPRO* 1 UNITS UNIT SUBCUT SCH ×5 (02:33→21:41)
[2017-02-18] MEDS: Piperacillin/Tazobac ADVAN(*) 3.375 GM in NS 0.9% 100 ML* 100 ML IVPB SCH ×3 (03:49→20:05)
[2017-02-18 06:45] LABS: Hematocrit 30 % (35-47); Hemoglobin 10.3 g/dl (12.0-16.0); Mean Corpuscular HGB Conc 35 g/dl (31-36); Mean Corpuscular Hemoglobin 30 pg (27-31); Mean Corpuscular Volume 86 fL (80-97); Mean Platelet Volume 9 um3 (7.4-10.4); Red Blood Count 3.45 10^6/ul (4.0-5.4); Red Cell Distribution Width 13 % (10.5-15); White Blood Count 10.2 10^3/ul (3.5-10.8)
[2017-02-18 07:00] LABS: BUN/Creatinine Ratio 27.3 (8-20); EGFR African American 140.9 (>60); EGFR Non-African American 109.6 (>60); Potassium 3.6 mmol/L (3.5-5.0)
[2017-02-18] MEDS: Heparin VIAL(*) 5000 UNITS/ML VIAL (FIVE THOUSAND) SUBCUT SCH ×3 (07:33→21:42)
[2017-02-18] MEDS: Aspirin EC Low Dose* 81 MG TAB.EC PO SCH (08:31)
[2017-02-18] MEDS: Clopidogrel TAB* 75 MG PO SCH (08:31)
[2017-02-18] MEDS: Pantoprazole IV* 40 MG IV SCH (08:32)
[2017-02-18 09:05] LABS: Calcium 8.2 mg/dL (8.6-10.3)
[2017-02-18] MEDS ORDERED: Meropenem 1 GM PREMIX(*) 1 GM/50 ML BAG IV SCH (10:00)
[2017-02-18] MEDS ORDERED: Dextrose 50% Syringe 50 ML* 25 GM/50 ML SYRINGE IV PUSH PRN (11:15)
--- NOTE | 2017-02-18 11:16 | PN ---
Progress Note - Progress Note Date of Service: 02/18/17 Note: CRITICAL CARE MEDICINE Date: 02/18/17 Time: 825 SUBJECTIVE: Patient seen and examined. doing well. oob to chair. PHYSICAL EXAM: Vital Signs: Reviewed. Neurologic: stable aphasia HEENT: pupils equal. Sclera anicteric. Trachea midline. Cardiovascular: S1 S2 Respiratory: ctab Abdomen: Soft, nt. No r/g/r. Extremities: Warm. Access: right fem line and left arm piv LABS: Reviewed. ESBL ecoli IMAGING: Reviewed. MEDICATIONS: Reviewed. ASSESSMENT: 71 F Septic shock sec esbl ecoli due to obstructive uropathy s/p left nephrostomy - recovering Septic encephalopathy on admission - resolved DM2 - f/u outpt regimen needs as not requiring insulin currently; ssi HTN - f/u outpt needs PLAN: doing well. ra. oob. off pressors and no anticipated need. fluid balance is well , and actually she can mobilize if able. could change abx to meropenum due to slow improvement with zosyn and potential benefit for esbl, but can allow ID to consult and defer their expertise. dc femoral line oob. pt prn to floor f/u anticipated ability to dc cruz when blood clearing and then outpt urology f /u Supportive and preventative care as ordered. VTE prophylaxis: heparin Cruz catheter f/u Disposition: to surgical floor Code Status: Full Critical Care Time: 25min FJackelin Dowling DO
--- NOTE | 2017-02-18 12:03 | CONS ---
CONSULTATION REPORT: DATE OF CONSULT: 02/16/17 REQUESTING PHYSICIAN: Dr. Dowling. CONSULTING SERVICE: Infectious Disease. REASON FOR CONSULT: E. coli bacteremia urinary tract infection. IMPRESSION: 1. 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 2. Septic shock present on admission, resolved. 3. Encephalopathy due to sepsis present on admission, improving but persistent. 4. History of ESBL E. coli urinary tract infection. 5. Diabetes. RECOMMENDATIONS: 1. Tube management per Urology, eventual extraction of the stone as an outpatient. 2. 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 As long as she continues to defervesce, the isolate was also sensitive to Bactrim, so after over 48 hours of continued improvement on Zosyn, we can change her to Bactrim double strength tablet twice daily for another week. HISTORY OF PRESENT ILLNESS: This is a 71-year-old woman with a history of urinary tract infection and diabetes, admitted with septic shock on 02/15/17. She cannot provide the history of that admission given her encephalopathy at this time, which is slowly improving, so the story was obtained instead from review of the medical record and discussion with Dr. Dowling. She was brought to the ER with abdominal pain on 02/15/17. CT of abdomen and pelvis with findings as above. She was initially started on ceftriaxone and a dose of gentamicin and Flagyl as well as IV resuscitation and norepinephrine infusion and after 02/16/17, she was switched to Zosyn. Her norepinephrine was weaned off yesterday. She continues on IV fluids. Blood cultures /4 positive for E. coli as well as the urine. She had a nephrostomy tube placed on 02/16/17. She has no chills or sweats and her abdominal pain is better. She denies fever. She had a low grade fever yesterday afternoon. She has had no diarrhea. PAST MEDICAL HISTORY: 1. Diabetes. 2. Urinary tract infection. 3. Hypertension. 4. Hyperlipidemia. 5. History of stroke. 6. Diverticulitis. MEDICATIONS: 1. Tylenol. 2. Aspirin. 3. Lipitor. 4. Plavix. 5. Heparin subcutaneous injection. 6. Meropenem. ALLERGIES: To PROPOXYPHENE. FAMILY HISTORY: Mother at 85 from brain tumor. Father in his 50s due to coronary artery disease and MS. SOCIAL HISTORY: She does not smoke or drink. She states she lives by herself. Medical history states she lives with her and that she is retired. REVIEW OF SYSTEMS: A 14-point review of systems was negative except as noted above. PHYSICAL EXAM: Vital Signs: Temperature 37, heart rate 84, respiratory rate 16 , blood pressure 128/72, O2 sat 100% on room air. General: She is awake, not in distress. Neurologic: She is oriented x2. Follows commands. Moves all extremities. HEENT: There is no conjunctival hemorrhage. Oropharynx without lesions. Neck: Supple without nuchal rigidity. Lymph Nodes: No inguinal, axillary, or epitrochlear lymphadenopathy. Heart: Regular rate and rhythm without murmurs, rubs, or gallops. Lungs: Clear to auscultation bilaterally. Abdomen: Soft, nontender, and nondistended. There are bowel sounds present. On the left flank, there is a nephrostomy tube without surrounding erythema. Skin: There is no rash or splinter hemorrhages. Musculoskeletal: No spine tenderness to palpation or joint synovitis. DIAGNOSTIC STUDIES/LAB DATA: White blood cell count 10, hemoglobin 10, and platelets 124,000. Creatinine 0.5. CRP was 1 on admission. Please see impressions and recommendations outlined above. Thanks for asking me to see Ms. Borja in consultation. [id number]/[facility] #: [id number] [facility] HOSPITALVidhi
[2017-02-18] MEDS: Atorvastatin* 40 MG TAB PO SCH (16:58)
[2017-02-19] MEDS: Piperacillin/Tazobac ADVAN(*) 3.375 GM in NS 0.9% 100 ML* 100 ML IVPB SCH ×3 (04:04→19:59)
[2017-02-19 05:13] LABS: Hematocrit 32 % (35-47); Hemoglobin 10.8 g/dl (12.0-16.0); Mean Corpuscular HGB Conc 34 g/dl (31-36); Mean Corpuscular Hemoglobin 29 pg (27-31); Mean Corpuscular Volume 86 fL (80-97); Mean Platelet Volume 10 um3 (7.4-10.4); Red Blood Count 3.69 10^6/ul (4.0-5.4); Red Cell Distribution Width 13 % (10.5-15); White Blood Count 5.4 10^3/ul (3.5-10.8)
[2017-02-19 05:39] LABS: BUN/Creatinine Ratio 18.2 (8-20); Calcium 8.5 mg/dL (8.6-10.3); EGFR African American 140.9 (>60); EGFR Non-African American 109.6 (>60); Potassium 3.6 mmol/L (3.5-5.0)
[2017-02-19] MEDS: Heparin VIAL(*) 5000 UNITS/ML VIAL (FIVE THOUSAND) SUBCUT SCH ×3 (06:39→21:48)
[2017-02-19] MEDS: Aspirin EC Low Dose* 81 MG TAB.EC PO SCH (09:42)
[2017-02-19] MEDS: Insulin LISPRO* 1 UNITS UNIT SUBCUT SCH ×4 (09:42→21:47)
[2017-02-19] MEDS: Clopidogrel TAB* 75 MG PO SCH (09:42)
--- NOTE | 2017-02-19 15:56 | PN ---
Subjective Date of Service: 02/19/17 Interval History: Patient seen and examined at bedside. Patient reports some nausea this AM with a bout of emesis. Denies pain. Afebrile. Cruz draining clear urine. Ambulating to the bathroom without difficulty. Family History: Unchanged from Admission Social History: Unchanged from Admission Past Medical History: Unchanged from Admission Objective Active Medications: Acetaminophen (Tylenol Tab*) 650 mg PO Q6H PRN Aspirin (Aspirin Ec Low Dose*) 81 mg PO DAILY MELVIN Atorvastatin Calcium (Lipitor*) 40 mg PO 1700 MELVIN Clopidogrel Bisulfate (Plavix Tab*) 75 mg PO DAILY MELVIN Dextrose (D50w Syringe 50 Ml*) 12.5 gm IV PUSH .FOR FS < 60 - SS PRN Heparin Sodium (Porcine) (Heparin Vial(*)) 5,000 units SUBCUT Q8HR MELVIN Piperacillin Sod/Tazobactam (Sod 3.375 gm/ Sodium Chloride) 100 mls @ 25 mls/ hr IVPB Q8H MELVIN Insulin Human Lispro (Humalog*) 0 units SUBCUT ACHS MELVIN Morphine Sulfate (Morphine Inj (Syringe)*) 2 mg IV Q4H PRN Ondansetron HCl (Zofran Inj*) 4 mg IV Q6H PRN Vital Signs Temp Pulse Resp BP Pulse Ox 98.2 F 61 16 132/41 98 02/19/17 11:43 02/19/17 11:43 02/19/17 11:43 02/19/17 11:43 02/19/17 11:43 Oxygen Devices in Use Now: None Appearance: sitting up in bed, NAD Eyes: No Scleral Icterus, PERRLA Ears/Nose/Mouth/Throat: NL Teeth, Lips, Gums Neck: NL Appearance and Movements; NL JVP Respiratory: Symmetrical Chest Expansion and Respiratory Effort Cardiovascular: NL Sounds; No Murmurs; No JVD, RRR, No Edema Abdominal: NL Sounds; No Tenderness; No Distention, - - nephrostomy tube in place. Extremities: No Edema Skin: No Rash or Ulcers Neurological: Alert and Oriented x 3, NL Muscle Strength and Tone Lines/Tubes/Other Access: Clean, Dry and Intact Cruz, Clean, Dry and Intact Peripheral IV Nutrition: Taking PO's Result Diagrams: 02/19/17 04:49 02/19/17 04:49 Assess/Plan/Problems-Billing Pt is a 71 y/o F w/ hx of HTN, HLD, DM who presented to the ED w/ encephalopathy admitted for septic shock from ESBL bacteremia from obstructive uropathy now s/p percutaneous nephrostomy tube. - Patient Problems (1) Septic shock due to Escherichia coli Comment: Resolved and now on floor. Continue IV Zosyn and if improvement continues can transition to PO Bactrim tomorrow per ID recommendations. (2) ESBL (extended spectrum beta-lactamase) producing bacteria infection Comment: Continue IV zosyn. Can transition to PO Bactrim in AM if improvement continues. (3) Obstructive uropathy Comment: L perc nephrostomy tube in place. Plan to d/c cruz this evening. Will need outpatient urology follow-up once infection cleared for L ureteroscopy and stone retrieval. (4) HLD (hyperlipidemia) Comment: Continue statin. (5) Diabetes Comment: Home regimen on hold. Sugars well controlled with sliding scale only. (6) Hypertension Comment: Home BP meds on hold for now. (7) CVA (cerebral vascular accident) Comment: Has some residual aphasia -baseline. Continue ASA and Plavix. (8) DVT prophylaxis Comment: Heparin SQ (9) Full code status Status and Disposition: Inpatient. Discharge home tomorrow if nausea resolves.
[2017-02-19] MEDS: Atorvastatin* 40 MG TAB PO SCH (16:37)
[2017-02-19] MEDS ORDERED: Insulin LISPRO* 1 UNITS UNIT SUBCUT ONE (21:44)
[2017-02-20] MEDS: Piperacillin/Tazobac ADVAN(*) 3.375 GM in NS 0.9% 100 ML* 100 ML IVPB SCH (04:05)
[2017-02-20 05:16] LABS: Hematocrit 32 % (35-47); Hemoglobin 10.7 g/dl (12.0-16.0); Mean Corpuscular HGB Conc 34 g/dl (31-36); Mean Corpuscular Hemoglobin 29 pg (27-31); Mean Corpuscular Volume 85 fL (80-97); Mean Platelet Volume 9 um3 (7.4-10.4); Red Cell Distribution Width 13 % (10.5-15); White Blood Count 4.4 10^3/ul (3.5-10.8)
[2017-02-20] MEDS: Heparin VIAL(*) 5000 UNITS/ML VIAL (FIVE THOUSAND) SUBCUT SCH (05:16)
[2017-02-20 05:28] LABS: BUN/Creatinine Ratio 18.9 (8-20); Calcium 8.3 mg/dL (8.6-10.3); EGFR African American 147.1 (>60); EGFR Non-African American 114.4 (>60); Potassium 3.4 mmol/L (3.5-5.0)
[2017-02-20 08:10] VITALS: BP 131/59
[2017-02-20] MEDS: Clopidogrel TAB* 75 MG PO SCH (09:26)
[2017-02-20] MEDS: Insulin LISPRO* 1 UNITS UNIT SUBCUT SCH (09:26)
[2017-02-20] MEDS: Aspirin EC Low Dose* 81 MG TAB.EC PO SCH (09:26)
--- NOTE | 2017-02-20 10:02 | DCNOTE ---
Subjective Date of Service: 02/20/17 Interval History: Patient seen and examined at bedside. Patient reports nausea improved. Ambulating without difficulty. Afebrile. Family History: Unchanged from Admission Social History: Unchanged from Admission Past Medical History: Unchanged from Admission Objective Active Medications: Acetaminophen (Tylenol Tab*) 650 mg PO Q6H PRN Aspirin (Aspirin Ec Low Dose*) 81 mg PO DAILY MELVIN Atorvastatin Calcium (Lipitor*) 40 mg PO 1700 MELVIN Clopidogrel Bisulfate (Plavix Tab*) 75 mg PO DAILY MELVIN Heparin Sodium (Porcine) (Heparin Vial(*)) 5,000 units SUBCUT Q8HR MELVIN Piperacillin Sod/Tazobactam (Sod 3.375 gm/ Sodium Chloride) 100 mls @ 25 mls/ hr IVPB Q8H MELVIN Insulin Human Lispro (Humalog*) 0 units SUBCUT ACHS MELVIN Morphine Sulfate (Morphine Inj (Syringe)*) 2 mg IV Q4H PRN Ondansetron HCl (Zofran Inj*) 4 mg IV Q6H PRN Vital Signs Temp Pulse Resp BP Pulse Ox 98.2 F 98 16 131/59 99 02/20/17 07:24 02/20/17 07:24 02/20/17 08:15 02/20/17 07:24 02/20/17 07:24 Oxygen Devices in Use Now: None Appearance: sitting up in bed, NAD Eyes: No Scleral Icterus Ears/Nose/Mouth/Throat: NL Teeth, Lips, Gums Neck: NL Appearance and Movements; NL JVP Respiratory: Symmetrical Chest Expansion and Respiratory Effort, Clear to Auscultation Cardiovascular: NL Sounds; No Murmurs; No JVD, RRR Abdominal: NL Sounds; No Tenderness; No Distention, - - L nephrostomy tube in place Extremities: No Edema Skin: No Rash or Ulcers Neurological: Alert and Oriented x 3, NL Muscle Strength and Tone Lines/Tubes/Other Access: Clean, Dry and Intact Peripheral IV Nutrition: Taking PO's Result Diagrams: 02/20/17 04:54 02/20/17 04:54 Microbiology and Other Data: . Assess/Plan/Problems-Billing Pt is a 71 y/o F w/ hx of HTN, HLD, DM who presented to the ED w/ encephalopathy admitted for septic shock from ESBL bacteremia from obstructive uropathy now s/p percutaneous nephrostomy tube. - Patient Problems (1) Septic shock due to Escherichia coli Comment: Transition to Bactrim for 7 day course. (2) ESBL (extended spectrum beta-lactamase) producing bacteria infection Comment: Transition to PO Bactrim. (3) Obstructive uropathy Comment: L perc nephrostomy tube in place. Will need outpatient urology follow- up once infection cleared for L ureteroscopy and stone retrieval. F/U with IR in 6 weeks. (4) HLD (hyperlipidemia) Comment: Continue statin. (5) Diabetes Comment: Home regimen on hold. Will restart metformin only at discharge. (6) Hypertension Comment: Home BP meds on hold for now. (7) CVA (cerebral vascular accident) Comment: Has some residual aphasia -baseline. Continue ASA and Plavix. (8) DVT prophylaxis Comment: Heparin SQ (9) Full code status Status and Disposition: Inpatient. Stable to be discharged home with close urology follow-up.
--- NOTE | 2017-02-21 05:34 | DS ---
CC: Dr. De Leon; Dr. Abad Dunn; Dr. Hi Delatorre; Dr. Jj Galeano * DISCHARGE SUMMARY: DATE OF ADMISSION: 02/16/17 DATE OF DISCHARGE: 02/20/17 PRIMARY CARE PROVIDER: Dr. De Leon. ATTENDING PHYSICIAN: Dr. Lv stephenson * (report dictated by Kelly Brown NP). PRIMARY DIAGNOSES: 1. Septic shock on admission from ESBL Escherichia coli bacteremia. 2. Obstructive uropathy with 4-mm obstructive stone, now status post left percutaneous nephrostomy. SECONDARY DIAGNOSES: 1. Diabetes. 2. Hypertension. 3. Hyperlipidemia. 4. History of cerebrovascular accident with residual aphasia. 5. Diverticulosis. STUDIES WHILE IN THE HOSPITAL: 1. CT scan of the abdomen and pelvis on 02/15/17, there is a 4-mm calculus at the left ureterovesical junction causing [id number] hydronephrosis. There is an additional small nonobstructing left renal calculus. 2. Nephrostomy tube placement, Dr. Abad Dunn, please refer to dictation for detail. 3. Uncomplicated placement of 8-Hebrew percutaneous nephrostomy catheter into the left lower pole renal collecting system with ultrasound on fluoroscopic guidance as described in the report. Routine recommended exchange of percutaneous nephrostomy tube 6 to 12 weeks depending on indications and specific circumstances of that patient. MEDICATIONS AT THE TIME OF DISCHARGE: New medication: Double strength Bactrim one tablet oral twice daily for 7 days. The following medications are the medications that patient came in on and should continue at discharge: 1. Aspirin 81 mg oral daily. 2. Toprol-XL 50 mg oral daily. 3. Metformin 750 mg oral twice daily. 4. Trulicity 0.5 mL subcutaneous weekly. 5. Lipitor 40 mg oral at 1700. 6. Plavix 75 mg oral daily. The patient is instructed to discontinue irbesartan, Jardiance, hydrochlorothiazide, and glipizide. CONSULTATIONS WHILE IN HOSPITAL: Dr. Abad Dunn, Interventional Radiology; Dr. Hi Delatorre, Urology; Dr. Jj Galeano, Infectious Disease. HISTORY OF PRESENT ILLNESS AND HOSPITAL COURSE: Ms. Borja is a 71-year-old female with history of diabetes, hypertension, hyperlipidemia, who presented to the emergency room encephalopathic on 02/16/17, found to have a 3-mm obstructive stone at the ureterovesical junction. The patient was admitted to the intensive care unit for further treatment. The patient was placed on broad- spectrum antibiotics. Initially, the plan was for the patient to go to the operating room with Dr. Delatorre, yet she continued to decompensate over in the first 12 hours of her admission, she became hypotensive. The decision was made for the patient to undergo urgent placement of left nephrostomy tube for decompression. This was placed on 02/16/[address] Dunn, please refer to his dictation for detail. The patient required blood pressure supplementation with Levophed as well as IV fluids. She grew 4/4 ESBL E. coli that was sensitive to Zosyn and antibiotics were changed to Zosyn. With continued fluid resuscitation and antibiotic coverage, the patient's blood pressure stabilized and mental status improved. She was seen in consultation by Dr. Galeano from Infectious Disease, please refer to his consultation for detail. Recommendations from Infectious Disease were to continue with Zosyn for 48 additional hours and then transition to Bactrim with continued improvement. The patient's white count continued to improve and blood pressure remained stable and on 02/20/17, the patient was stable to be discharged home. For the patient's diabetes, she was maintained on the sliding scale. Blood sugars remained relatively controlled without any long-acting insulin. I have recommended at discharge for the patient to start only her metformin as well as her Trulicity. Other diabetic medications can be restarted if her sugars increase. Additionally, her blood pressure remained low after her sepsis resolved. Upon discharge, her Toprol-XL will be restarted, yet we will hold on her ARB for now. For the history of stroke, her aspirin and Plavix will continue. On 02/20/17, vitals were as follows, temperature 98.2, heart rate 98 , respiratory rate 16, blood pressure 139/59, oxygen saturation 99%. At this point, the patient was stable for discharge. DISCHARGE PLAN: This patient is discharged on a consistent carb diet. Below are the important followup instructions: 1. The patient should notify Dr. Delatorre's office on 02/22/17 to arrange for followup visit. The plan is for Urology to perform a ureteroscopy with possible lithotripsy. 2. If the patient's nephrostomy tube is still in after 6 weeks and has not been removed by Urology, the patient should follow up with Dr. Dunn's office for a tube exchange. 3. The patient should continue her antibiotics until the course was complete and follow up with Dr. De Leon within 1 to 2 weeks. 4. If and when the patient's blood sugars increase and are consistently over 200, the patient may reintroduce her other home diabetic medications. 5. Care for the nephrostomy tube is as follows: The patient should flush the tube twice a day with 5 mL of normal saline. The patient may shower and dressing should be changed after shower. The patient should return to the hospital if she experiences any high fever, foul smelling urine, severe abdominal pain. I reviewed all these instructions with the patient and her son and they are agreeable with her discharge today. This is a summarized report of a complex medical history and hospital stay. For more details, please see the entire medical record. TIME SPENT: Time for discharge was 60 minutes, and 35 minutes was spent with the patient discussing medications at discharge and followup instructions. CONDITION ON DISCHARGE: Stable. KELLY BROWN NP [id number]/[facility] #: [id number] JOSEPHINE
== END 2017-02-20 11:05 | disposition home or self-care (01) | DRG 710 ==
LOC: ED 18:42 → ICU 02-16 01:55 → SSU 02-18 12:53
PROVIDERS: ADMIT Hospitalist; ATTEND Internal Medicine
PROC: 06HM33Z Insertion of Infusion Device into Right Femoral Vein, Percutaneous Approach (ICD-10-PCS; principal; 2017-02-16)
PROC: 0T9130Z Drainage of Left Kidney with Drainage Device, Percutaneous Approach (ICD-10-PCS; 2017-02-16)
PROC: 3E033XZ Introduction of Vasopressor into Peripheral Vein, Percutaneous Approach (ICD-10-PCS; 2017-02-16)
PROC: 0T9B70Z Drainage of Bladder with Drainage Device, Via Natural or Artificial Opening (ICD-10-PCS; 2017-02-16)
DX: A41.51 Sepsis due to Escherichia coli [E. coli] (principal); R65.21 Severe sepsis with septic shock; G93.41 Metabolic encephalopathy; N13.2 Hydronephrosis with renal and ureteral calculous obstruction; I69.351 Hemiplegia and hemiparesis following cerebral infarction affecting right dominant side; J45.909 Unspecified asthma, uncomplicated; E78.5 Hyperlipidemia, unspecified; E11.9 Type 2 diabetes mellitus without complications; I10 Essential (primary) hypertension; E87.6 Hypokalemia; R40.2412 Glasgow coma scale score 13-15, at arrival to emergency department; K52.89 Other specified noninfective gastroenteritis and colitis; K57.90 Diverticulosis of intestine, part unspecified, without perforation or abscess without bleeding; Z79.82 Long term (current) use of aspirin; Z79.02 Long term (current) use of antithrombotics/antiplatelets; Z88.8 Allergy status to other drugs, medicaments and biological substances; Z79.84 Long term (current) use of oral hypoglycemic drugs; Z82.49 Family history of ischemic heart disease and other diseases of the circulatory system; I69.320 Aphasia following cerebral infarction
CPT/HCPCS: 36415; 50432; 74177; 76775; 80048; 80053; 81003; 81015; 83605; 83690; 85025; 85027; 85610; 85730; 86140; 87040; 87077; 87086; 87186; 87205; 87641; A9270-GY; C1729; C1769; J0696; J0744; J1170; J1580; J1644; J2185; J2250; J2405; J2543; J3010; J3490; Q9967

== ENCOUNTER 2021-02-16 10:07 | Observation (INO) ==
[2021-02-16 12:18] LABS: ABS Lymphocytes 1.4 10^3/ul (1.0-4.8); ABS Monocytes 0.9 10^3/ul (0-0.8); ABS Neutrophils 4.5 10^3/ul (1.5-7.7); Eosinophil % 0.7 %; Hematocrit 36 % (35-47); Hemoglobin 12.3 g/dL (12.0-16.0); Lymphocyte % 20.1 %; Mean Corpuscular HGB Conc 34 g/dL (31-36); Mean Corpuscular Hemoglobin 30 pg (27-31); Mean Corpuscular Volume 87 fL (80-97); Platelet Count 188 10^3/uL (150-450); Red Blood Count 4.12 10^6 /uL (3.70-4.87); Red Cell Distribution Width 13 % (10-15); White Blood Count 6.9 10^3/uL (3.5-10.8)
[2021-02-16 12:36] LABS: Albumin 4.4 g/dL (3.2-5.2); Albumin/Globulin Ratio 1.6 (1-3); Calcium 9.7 mg/dL (8.6-10.3); Globulin 2.8 g/dL (2-4); Potassium 3.7 mmol/L (3.5-5.0); Total Bilirubin 0.8 mg/dL (0.2-1.0); Total Protein 7.2 g/dL (6.4-8.9); eGFR CKD-EPI 94.3 (>60)
[2021-02-16 13:31] LABS: Activated Partial Thrombo Time 30.7 seconds (26.0-38.0); INR 1.08 (0.86-1.15)
[2021-02-16] MEDS ORDERED: Dextrose 50% Syringe 50 ml 25 GM/50 ML SYRINGE IV PUSH PRN (15:09)
[2021-02-16] MEDS: Heparin 5000 UNITS/ML 1 mL VIAL SUBCUT SCH ×2 (17:03→21:09)
[2021-02-16] MEDS ORDERED: HYDROcodone/ACETAMIN 5/325 mg TAB PO PRN (18:19)
[2021-02-16] MEDS ORDERED: Acetaminophen IV 1 GM/100ML 100 ML IV SCH (18:30)
[2021-02-17] MEDS: Heparin 5000 UNITS/ML 1 mL VIAL SUBCUT SCH ×3 (05:18→20:43)
[2021-02-17] MEDS: Docusate LIQ 100 MG/10 ML UDC PO SCH (09:50)
[2021-02-17] MEDS: Aspirin EC 81 mg TAB.EC (enteric coated) PO SCH (09:51)
[2021-02-17] MEDS: Cholecalciferol (VIT D3) 1,000 unit TAB PO SCH (09:51)
[2021-02-18] MEDS: Heparin 5000 UNITS/ML 1 mL VIAL SUBCUT SCH ×3 (05:19→22:49)
[2021-02-18] MEDS: Docusate LIQ 100 MG/10 ML UDC PO SCH (07:08)
[2021-02-18] MEDS: Cholecalciferol (VIT D3) 1,000 unit TAB PO SCH (08:46)
[2021-02-18] MEDS: Aspirin EC 81 mg TAB.EC (enteric coated) PO SCH (08:46)
[2021-02-19] MEDS: Heparin 5000 UNITS/ML 1 mL VIAL SUBCUT SCH ×3 (05:11→21:18)
[2021-02-19] MEDS: Cholecalciferol (VIT D3) 1,000 unit TAB PO SCH (08:58)
[2021-02-19] MEDS: Docusate LIQ 100 MG/10 ML UDC PO SCH (08:58)
[2021-02-19] MEDS: Aspirin EC 81 mg TAB.EC (enteric coated) PO SCH (08:58)
[2021-02-20] MEDS: Heparin 5000 UNITS/ML 1 mL VIAL SUBCUT SCH ×2 (06:30→14:29)
[2021-02-20] MEDS: Cholecalciferol (VIT D3) 1,000 unit TAB PO SCH (10:02)
[2021-02-20] MEDS: Docusate LIQ 100 MG/10 ML UDC PO SCH (10:02)
[2021-02-20] MEDS: Aspirin EC 81 mg TAB.EC (enteric coated) PO SCH (10:02)
[2021-02-20 11:35] VITALS: BP 135/77
== END 2021-02-20 15:30 | disposition home or self-care (01) ==
LOC: ED 10:07 → EDHOLD 15:18 → INTOOBSV 15:18 → SUATTDRO 15:18 → SSU 20:18
PROVIDERS: ADMIT Internal Medicine; ATTEND Student in an Organized Health Care Education/Training Program